=== PATIENT | female | born 2000 | race Two or more races ===

== ENCOUNTER 2023-08-30 11:37 | Emergency (ER) | payer OTHER ==
[~2023-08-30] VITALS: Ht 170.2 cm; Wt 59.0 kg
[2023-08-30] MEDS ORDERED: LOPERAMIDE HCL 2 MG CAPSULE PO ONE (12:30)
[2023-08-30 12:40] LABS: HEMATOCRIT 36.3 % (36.0-45.00); HEMOGLOBIN 12.7 g/dL (12.0-15.00); MEAN CELL VOLUME 84.1 fL (80.00-100.00); MEAN CORPUSCULAR HEMOGLOBIN 29.4 pg (27.00-32.0); MEAN CORPUSCULAR HGB CONC 34.9 g/dl (32.0-36.0); PLATELET COUNT 346 K/uL (150-450); RED BLOOD COUNT 4.32 M/uL (4.00-6.00); RED CELL DISTRIBUTION WIDTH 13.1 % (11.5-14.5)
[2023-08-30 13:00] LABS: PH,URINE 6.5 (5.0-8.0); URINE APPEARANCE Clear; URINE BILIRRUBIN Negative (NEGATIVE); URINE BLOOD Large; URINE COLOR Yellow; URINE GLUCOSE Negative (NEGATIVE); URINE LEUKOCYTE Trace; URINE NITRATE Negative; URINE PROTEIN Negative (NEGATIVE)
[2023-08-30 13:04] LABS: URINE BACTERIA 32.7 uL (0.0-1933); URINE EPITHELIAL CELLS 4.6 uL (0.0-38.8); URINE RBC 1372.3 uL (0.0-20.8); URINE WBC 5.2 uL (0.0-23.2)
[2023-08-30 13:46] LABS: CALCIUM 9.5 mg/dL (8.5-10.1); CREATININE SERUM 0.62 mg/dL (0.55-1.02); GFR 117.28; POTASSIUM 3.96 mEq/L (3.5-5.1)
== END 2023-08-30 16:21 | disposition home or self-care (01) ==
LOC: ER 11:38
PROVIDERS: Emergency Medicine
DX: R10.2 Pelvic and perineal pain (principal); N83.292 Other ovarian cyst, left side; N83.291 Other ovarian cyst, right side

== ENCOUNTER 2024-09-22 08:02 | Emergency (ER) | payer OTHER ==
[~2024-09-22] VITALS: Ht 167.6 cm; Wt 61.2 kg
[2024-09-22 09:51] LABS: BASO % 0.5 % (0.1-1.2); EOS # 0.03 (0.04-0.54); EOS % 0.4 % (0.7-7.0); LYMPH # 4.81 (1.18-3.74); LYMPH % 56.9 % (19.3-53.1); MEAN PLATELET VOLUME 10.30 fl (9.4-12.4); MONO # 0.43 (0.24-0.82); MONO % 5.1 % (4.7-12.5); NEUT # 3.11 (1.56-6.13); NEUT % 36.7 % (34.0-71.1); RED CELL DISTRIBUTION WIDTH 12.8 % (11.6-14.4)
[2024-09-22] MEDS ORDERED: NITROGLYCERIN IN 5 % DEXTROSE 50 MG/250 ML BOTTLE IV STA (10:26)
[2024-09-22] MEDS ORDERED: ASPIRIN 325 MG TABLET PO STA (10:27)
[2024-09-22] MEDS ORDERED: TICAGRELOR 90 MG TABLET PO STA (10:27)
== END 2024-09-22 11:25 | disposition home or self-care (01) ==
LOC: ER 08:02
PROVIDERS: General Practice
DX: R59.1 Generalized enlarged lymph nodes (principal); R20.2 Paresthesia of skin